=== PATIENT | male | born 1985 | race Caucasian/White ===

== ENCOUNTER 2019-02-19 12:54 | Emergency (ER) | payer OTHER ==
[~2019-02-19] VITALS: Ht 172.7 cm; Wt 122.7 kg
[2019-02-19] MEDS ORDERED: BENZOCAINE/MENTHOL LOZENGE PO ONE (15:45)
[2019-02-19] MEDS ORDERED: IBUPROFEN 400 MG TABLET PO ONE (15:45)
[2019-02-19] MEDS ORDERED: DEXAMETHASONE 4 MG TABLET PO ONE (16:15)
[2019-02-19 19:48] VITALS: BP 119/74
== END 2019-02-19 20:07 | disposition home or self-care (01) ==
LOC: EMS 12:56
DX: J02.9 Acute pharyngitis, unspecified (principal); G89.29 Other chronic pain; F17.210 Nicotine dependence, cigarettes, uncomplicated; F12.90 Cannabis use, unspecified, uncomplicated
CPT/HCPCS: 36415; 86308; 87430; 99284; 99406; J8540